=== PATIENT | male | born 1970 | race Caucasian/White ===

== ENCOUNTER 2016-09-24 03:53 | Emergency (ER) | payer OTHER ==
[2016-09-24 04:05] VITALS: BP 147/110; PULSE 120; TEMP 98.3; BMI 26.4
--- NOTE | 2016-09-24 04:10 | PDOC ---
History of Present Illness - General Chief Complaint: Tongue Swelling Stated Complaint: BUMPS ON TONGUE Time Seen by Provider: 09/24/16 04:09 - History of Present Illness Initial Comments: 09/24/16 06:39 concerned that his tongue appears abnormal no fever/ chills no tongue trauma recently used crystal meth pmh: none fhx: noncontrib ros: reviewed and otherwise negative o/e hr rechecked--92 oral pharynx-nl, including nl tongue no adenopathy neuro-nl speech, nl gait psych-anxious a/p normal oral pharyngeal exam Past History - Past Medical History Allergies/Adverse Reactions: Allergies Allergy/AdvReac Type Severity Reaction Status Date / Time No Known Allergies Allergy Verified 09/24/16 04:11 Home Medications: Ambulatory Orders NK [No Known Home Medication] 09/24/16 Other medical history: BACTERIAL INFECTION - Psycho/Social/Smoking Cessation Hx Anxiety: No Suicidal Ideation: No Smoking History: Never smoked Have you smoked in the past 12 months: No Information on smoking cessation initiated: No Hx Alcohol Use: No Drug/Substance Use Hx: Yes (CRYTAL METH) *Physical Exam - Vital Signs Last Vital Signs Temp Pulse Resp BP Pulse Ox 98.3 F 120 H 18 147/110 98 09/24/16 03:58 09/24/16 03:58 09/24/16 03:58 09/24/16 03:58 09/24/16 03:58 *DC/Admit/Observation/Transfer Diagnosis at time of Disposition: Drug reaction Qualifiers: Encounter type: initial encounter Qualified Code(s): T88.7XXA - Unspecified adverse effect of drug or medicament, initial encounter - Discharge Dispostion Disposition: HOME Condition at time of disposition: Stable - Patient Instructions Printed Discharge Instructions: DI for Adverse Drug Reaction -- Other
== END 2016-09-24 04:15 | disposition home or self-care (01) ==
LOC: FER 03:53
DX: T88.7XXA Unspecified adverse effect of drug or medicament, initial encounter (principal); T65.891A Toxic effect of other specified substances, accidental (unintentional), initial encounter; Y92.9 Unspecified place or not applicable
CPT/HCPCS: 99281-25